=== PATIENT | female | born 1955 | race Caucasian/White ===

== ENCOUNTER 2017-04-07 20:04 | Observation (INO) | payer MEDICARE ==
[~2017-04-07] VITALS: Ht 162.6 cm; Wt 74.3 kg
[2017-04-07 20:55] LABS: ASPARTATE AMINO TRANSFERASE 23 U/L (15-37); BLOOD UREA NITROGEN 9 mg/dL (7-18)
[2017-04-07 21:00] LABS: IS PT STATUS REG ER OR PRE ER? YES
[2017-04-07] MEDS ORDERED: HYDR-3144 PO (21:10)
[2017-04-07] MEDS ORDERED: LISI-170 PO (21:10)
[2017-04-07] MEDS ORDERED: IRON (21:10)
[2017-04-07] MEDS ORDERED: VIT D (21:10)
[2017-04-07] MEDS ORDERED: ASPIRIN 81 MG TABLET CHEW PO ONE (22:00)
[2017-04-07] MEDS ORDERED: HYDROcodone/APAP 10/325 MG TABLET PO PRN (22:00)
[2017-04-07] MEDS ORDERED: HYDROcodone/APAP 10/325 MG TABLET ONE (22:32)
[2017-04-07] MEDS ORDERED: ASPIRIN 81 MG TABLET CHEW ONE (22:32)
[2017-04-08] MEDS ORDERED: HYDROcodone/APAP 10/325 MG TABLET PO PRN ×2 (01:00→08:00)
[2017-04-08] MEDS ORDERED: ENOXAPARIN 40 MG/0.4 ML SQ SCH (01:00)
[2017-04-08 01:06] VITALS: BP 146/75
[2017-04-08 03:26] LABS: IS PT STATUS REG ER OR PRE ER? NO
[2017-04-08 03:35] VITALS: BP 117/72
[2017-04-08] MEDS ORDERED: MORPHINE SULFATE 4 MG/ML, 1ML ONE ×2 (04:47→11:57)
[2017-04-08] MEDS ORDERED: MORPHINE SULFATE 4 MG/ML, 1ML IVPush ONE (05:00)
[2017-04-08 07:29] VITALS: BP 121/80
[2017-04-08] MEDS ORDERED: HYDROcodone/APAP 10/325 MG TABLET ONE (08:02)
[2017-04-08 08:07] LABS: IS PT STATUS REG ER OR PRE ER? NO
[2017-04-08] MEDS: HYDROcodone/APAP 10/325 MG TABLET PO PRN ×3 (08:09→15:54)
[2017-04-08] MEDS ORDERED: LISINOPRIL 20 MG TABLET PO SCH (09:00)
[2017-04-08] MEDS ORDERED: MORPHINE SULFATE 4 MG/ML, 1ML IVPush PRN (12:00)
[2017-04-08] MEDS ORDERED: REGADENOSON 0.4 MG/5 ML SYRINGE ONE (12:33)
[2017-04-08 15:09] VITALS: BP 122/69
== END 2017-04-08 17:52 | disposition home or self-care (01) ==
LOC: ED 22:30 → EDIP 23:30 → INTOOBSV 23:30 → 5SO 04-08 00:17 → UNDODISIN 04-08 17:52
PROVIDERS: ADMIT Internal Medicine; ATTEND Internal Medicine
DX: R07.89 Other chest pain (principal); G89.29 Other chronic pain; M94.0 Chondrocostal junction syndrome [Tietze]; M25.512 Pain in left shoulder; I10 Essential (primary) hypertension; M62.838 Other muscle spasm; N64.4 Mastodynia; L40.9 Psoriasis, unspecified; M06.9 Rheumatoid arthritis, unspecified; R45.1 Restlessness and agitation; M17.0 Bilateral primary osteoarthritis of knee; Z82.61 Family history of arthritis; Z88.0 Allergy status to penicillin; Z79.899 Other long term (current) drug therapy
CPT/HCPCS: 36415; 71020; 78452; 80053; 80061; 84443; 84484; 85025; 93005; 93017; 93306; 96372; 96374; 96375; 99285; A9502; C9898; G0378; J1650; J2785

== ENCOUNTER 2017-04-12 22:21 | Emergency (ER) | payer MEDICARE ==
[~2017-04-12] VITALS: Ht 162.6 cm; Wt 79.1 kg
[~2017-04-12 22:21] MED LIST: HYDR-3144 PO; IRON; LISI-170 PO; VIT D
[2017-04-12 22:24] VITALS: BP 136/83
[2017-04-13] MEDS ORDERED: HYDROmorphone 1 MG/ML, 1ML IM PRN (00:30)
[2017-04-13] MEDS ORDERED: KETOROLAC 30 MG/1 ML IM ONE (00:30)
[2017-04-13] MEDS ORDERED: HYDROmorphone 1 MG/ML, 1ML ONE (00:37)
[2017-04-13] MEDS ORDERED: KETOROLAC 30 MG/1 ML ONE (00:38)
== END 2017-04-13 01:33 | disposition home or self-care (01) ==
LOC: ED 23:59
DX: R07.89 Other chest pain (principal); I10 Essential (primary) hypertension
CPT/HCPCS: 93005; 96372; 99284; J1170; J1885

== ENCOUNTER 2017-06-10 18:33 | Emergency (ER) | payer MEDICARE ==
[~2017-06-10] VITALS: Ht 162.6 cm; Wt 82.7 kg
[2017-06-10] MEDS ORDERED: HYDROcodone/APAP 10/325 MG TABLET ONE (19:26)
[2017-06-10] MEDS ORDERED: KETOROLAC 30 MG/1 ML ONE (19:26)
[2017-06-10] MEDS ORDERED: HYDROcodone/APAP 10/325 MG TABLET PO PRN (19:30)
[2017-06-10] MEDS ORDERED: KETOROLAC 30 MG/1 ML IM ONE (19:30)
[2017-06-10 20:00] VITALS: BP 149/89
[2017-06-14] MEDS ORDERED: IBUP-1222 PO (20:59)
[2017-06-14] MEDS ORDERED: IBUP800T PO (20:59)
== END 2017-06-10 20:33 | disposition home or self-care (01) ==
LOC: ED 19:16
DX: S83.91XA Sprain of unspecified site of right knee, initial encounter (principal); S39.012A Strain of muscle, fascia and tendon of lower back, initial encounter; I10 Essential (primary) hypertension; G89.29 Other chronic pain; Z88.0 Allergy status to penicillin; W18.30XA Fall on same level, unspecified, initial encounter; Y93.89 Activity, other specified; Y99.8 Other external cause status; Y92.89 Other specified places as the place of occurrence of the external cause
CPT/HCPCS: 29505; 72110; 73564; 96372; 99284; J1885

== ENCOUNTER → 2017-10-05 | Outpatient (CLI) | payer MEDICARE ==
[~2017-10-05] MED LIST changes: +CHOL400T10 PO; -HYDR-3144 PO; +HYDR-3245 PO; +HYDR-3307 PO; +IBUP-1222 PO; +IBUP-1223 PO; +IRON PO; +MORPHINE PO; +OMEP-110 PO; +OXYC5TAB3 PO
[2017-10-05 11:08] LABS: PATH.CAST-FLAG NOT PRESENT; SPERM-FLAG NOT PRESENT; SRC-FLAG NOT PRESENT; XTAL-FLAG NOT PRESENT; YLC-FLAG NOT PRESENT
[2017-10-05 11:15] LABS: BLOOD UREA NITROGEN 12 mg/dL (7-18)
[2017-10-05 11:18] LABS: ASPARTATE AMINO TRANSFERASE 14 U/L (15-37)
== END | disposition home or self-care (01) ==
LOC: STAR 09:26
PROVIDERS: ATTEND Orthopaedic Surgery
DX: Z01.818 Encounter for other preprocedural examination (principal); M17.12 Unilateral primary osteoarthritis, left knee; M17.11 Unilateral primary osteoarthritis, right knee
CPT/HCPCS: 36415; 80053; 81001; 87081; 87086; 87147; 93005

== ENCOUNTER 2017-10-16 09:24 | Observation (INO) | payer MEDICARE ==
[~2017-10-16] VITALS: Ht 162.6 cm; Wt 91.3 kg
[~2017-10-16 09:24] MED LIST changes: -OXYC5TAB3 PO
[2017-10-16] MEDS ORDERED: VANCOMYCIN PER PHARMACY MC STA (12:34)
[2017-10-16] MEDS ORDERED: LACTATED RINGERS 1,000 ML IV SCH (12:44)
[2017-10-16 12:47] VITALS: BP 161/86
[2017-10-16] MEDS ORDERED: VANCOMYCIN 1,600 MG in SODIUM CHLORIDE 0.9% 250 ML IV ONE (13:00)
[2017-10-16] MEDS ORDERED: MIDAZOLAM 1 MG/ML, 2ML ONE ×2 (14:25→16:57)
[2017-10-16] MEDS ORDERED: DEXAMETHASONE 4 MG/ML, 1ML ONE ×2 (14:26)
[2017-10-16] MEDS ORDERED: ONDANSETRON 2MG/ML, 2ML ONE ×2 (14:26)
[2017-10-16] MEDS ORDERED: ROCURONIUM 10 MG/ML,10ML ONE (14:26)
[2017-10-16] MEDS ORDERED: PROPOFOL 10 MG/ML, 20ML ONE (14:26)
[2017-10-16] MEDS ORDERED: SUCCINYLCHOLINE 20 MG/ML, 10ML ONE (14:26)
[2017-10-16] MEDS ORDERED: FENTANYL PF 250 MCG/5ML ONE ×2 (14:26→15:20)
[2017-10-16] MEDS: SODIUM CHLORIDE 0.9% 1,000 ML IV SCH ×2 (14:35→20:00)
[2017-10-16] MEDS ORDERED: MEPERIDINE/PF 25MG/0.5ML IVPush PRN (15:00)
[2017-10-16] MEDS ORDERED: ONDANSETRON 2MG/ML, 2ML IV PRN (15:00)
[2017-10-16] MEDS ORDERED: hydrALAzine 20 MG/ML, 1ML IV PRN (15:00)
[2017-10-16] MEDS ORDERED: BISACODYL 10 MG SUPP PR PRN (15:00)
[2017-10-16] MEDS ORDERED: PROMETHAZINE 25 MG/ML, 1ML IV PRN (15:00)
[2017-10-16] MEDS ORDERED: ACETAMINOPHEN 325 MG TABLET PO PRN (15:00)
[2017-10-16] MEDS ORDERED: OXYcodone 5 MG/5 ML ORAL.SOL UDC PO PRN (15:00)
[2017-10-16] MEDS ORDERED: ACETAMINOPHEN 650 MG/20.3 ML UDC PO PRN (15:00)
[2017-10-16] MEDS ORDERED: ENOXAPARIN 40 MG/0.4 ML SQ SCH (15:00)
[2017-10-16] MEDS ORDERED: LABETALOL 5MG/ML, 20ML IV PRN (15:00)
[2017-10-16] MEDS ORDERED: ALBUTEROL SULFATE 2.5 MG/3 ML NPPB PRN (15:00)
[2017-10-16] MEDS ORDERED: MAGNESIUM HYDROXIDE 8%, 30ML UDC PO PRN (15:00)
[2017-10-16] MEDS ORDERED: SENNA/DOCUSATE TABLET PO PRN (15:00)
[2017-10-16] MEDS ORDERED: HYDROcodone/APAP 5/325 TABLET PO PRN (15:00)
[2017-10-16] MEDS ORDERED: ONDANSETRON 2MG/ML, 2ML IVPush PRN (15:00)
[2017-10-16] MEDS ORDERED: OXYcodone IR 5MG TABLET PO PRN (15:00)
[2017-10-16] MEDS ORDERED: ONDANSETRON 4 MG TABLET PO PRN (15:00)
[2017-10-16] MEDS ORDERED: TRANEXAMIC ACID 100 MG/ML, 10ML ONE (15:05)
[2017-10-16] MEDS ORDERED: EPHEDRINE 50 MG/ML, 1ML ONE (15:09)
[2017-10-16] MEDS ORDERED: BACITRACIN 50,000 UNIT ONE (15:18)
[2017-10-16] MEDS ORDERED: morphine SULFATE/PF 1 MG/ML, 10ML ONE (15:18)
[2017-10-16] MEDS ORDERED: KETOROLAC 60 MG/2 ML ONE (15:18)
[2017-10-16] MEDS ORDERED: ROPIvacaine/PF 0.5%, 20 ML ONE (15:18)
[2017-10-16] MEDS ORDERED: FENTANYL PF 100 MCG/2ML ONE ×2 (15:18→16:59)
[2017-10-16] MEDS: HYDROmorphone 1 MG/ML, 1ML IV PRN ×4 (16:45→17:15)
[2017-10-16] MEDS ORDERED: OXYcodone 5 MG/5 ML ORAL.SOL UDC ONE (16:46)
[2017-10-16] MEDS ORDERED: HYDROmorphone 2 MG/ML, 1ML ONE (16:46)
[2017-10-16] MEDS: MIDAZOLAM 1 MG/ML, 2ML IV PRN ×3 (16:50→18:46)
[2017-10-16] MEDS: FENTANYL PF 100 MCG/2ML IV PRN ×2 (17:20→17:32)
[2017-10-16] MEDS: morphine SULFATE 10 MG/ML, 1ML IV PRN ×5 (18:57→21:17)
[2017-10-16 19:58] VITALS: BP 133/86
[2017-10-16] MEDS: LORazepam 2 MG/ML, 1ML IVPush PRN (21:05)
[2017-10-16] MEDS: DOCUSATE 100 MG CAPSULE PO SCH (21:11)
[2017-10-16] MEDS: CEFAZOLIN PMX 2GM/50ML 50 ML IVPB SCH ×2 (21:23→23:52)
[2017-10-16] MEDS: LISINOPRIL 20 MG TABLET PO SCH (21:23)
[2017-10-16] MEDS: OXYcodone IR 5MG TABLET PO PRN (23:50)
[2017-10-17] MEDS: KETOROLAC 30 MG/1 ML IV SCH ×2 (00:03→09:21)
[2017-10-17 00:05] VITALS: BP 123/69
[2017-10-17 02:19] VITALS: BP 90/61
[2017-10-17] MEDS: OXYcodone IR 5MG TABLET PO PRN ×3 (04:53→13:47)
[2017-10-17] MEDS: SODIUM CHLORIDE 0.9% 1,000 ML IV SCH (05:30)
[2017-10-17 07:18] VITALS: BP 100/55
[2017-10-17] MEDS: LORazepam 2 MG/ML, 1ML IVPush PRN (07:23)
[2017-10-17] MEDS ORDERED: OMEPRAZOLE 20 MG CAPSULE.DR PO SCH (08:00)
[2017-10-17] MEDS ORDERED: ALUMINUM/MAG/SIMETHICONE 30 ML UDC PO PRN (08:00)
[2017-10-17] MEDS: LISINOPRIL 20 MG TABLET PO SCH (09:00)
[2017-10-17] MEDS: DOCUSATE 100 MG CAPSULE PO SCH (09:21)
[2017-10-17 13:00] VITALS: BP 115/63
[2017-10-17] MEDS ORDERED: FLU VACC QS2017-18 (36MOS+) UP/PF 0.5 ML IM-VACC ONE (13:00)
[2017-10-17] MEDS ORDERED: OXYC5TAB3 PO (13:29)
[2017-10-17] MEDS ORDERED: KETOROLAC 30 MG/1 ML IV SCH (15:00)
== END 2017-10-17 14:20 | disposition home or self-care (01) ==
LOC: INTOOBSV 12:15 → ORIP 12:15 → 4NOR 18:34 → DCLOUNGE 10-17 13:55
PROVIDERS: ADMIT Orthopaedic Surgery; ATTEND Orthopaedic Surgery
DX: M17.11 Unilateral primary osteoarthritis, right knee (principal); M21.061 Valgus deformity, not elsewhere classified, right knee; I10 Essential (primary) hypertension; E66.9 Obesity, unspecified; M81.0 Age-related osteoporosis without current pathological fracture
CPT/HCPCS: 27447; 73560; 90686; 96365; 96375; 96376; 97116; 97150; 97161; 97166; C1713; C1776; G0008; G0378; G8978; G8979; G8980; J0330; J0690; J1100; J1170; J1885; J2060; J2250; J2270; J2274; J2405; J2704; J2795; J3010; J3370; J7030; J7050; J7120; 96374

== ENCOUNTER → 2017-10-24 | Outpatient (CLI) | payer MEDICARE ==
[~2017-10-24] MED LIST changes: +OXYC5TAB3 PO
== END | disposition home or self-care (01) ==
LOC: RAD 16:56
PROVIDERS: ATTEND Orthopaedic Surgery
DX: M79.604 Pain in right leg (principal); R60.0 Localized edema
CPT/HCPCS: 93970

== ENCOUNTER 2019-02-24 12:38 | Emergency (ER) | payer MEDICARE ==
[~2019-02-24] VITALS: Ht 162.6 cm; Wt 82.3 kg
[2019-02-24 12:46] VITALS: BP 112/81
== END 2019-02-24 14:19 | disposition home or self-care (01) ==
LOC: ED 14:00
DX: J00 Acute nasopharyngitis [common cold] (principal); J01.10 Acute frontal sinusitis, unspecified; I10 Essential (primary) hypertension; G89.29 Other chronic pain
CPT/HCPCS: 71046; 87081; 87880; 99284

== ENCOUNTER → 2020-01-13 | Outpatient (CLI) | payer MEDICARE ==
[~2020-01-13] MED LIST changes: +ALPRazolam 1MG TAB ONE; -HYDR-3307 PO; +HYDR-36 PO
== END | disposition home or self-care (01) ==
LOC: RAD 09:34
PROVIDERS: ATTEND Chiropractor Independent Medical Examiner
DX: M51.36 Other intervertebral disc degeneration, lumbar region (principal); M47.816 Spondylosis without myelopathy or radiculopathy, lumbar region; M48.061 Spinal stenosis, lumbar region without neurogenic claudication
CPT/HCPCS: 72148

== ENCOUNTER 2020-03-11 12:40 | Emergency (ER) | payer MEDICARE ==
[~2020-03-11] VITALS: Ht 162.6 cm; Wt 84.7 kg
[~2020-03-11 12:40] MED LIST changes: -ALPRazolam 1MG TAB ONE
[2020-03-11] MEDS ORDERED: OXYC-306 PO (12:58)
[2020-03-11] MEDS ORDERED: LOSA25TA25 PO (12:58)
--- NOTE | 2020-03-11 13:00 | NUR ---
pt ambulated back to room. changed into gown, sitting on gurney, call light within reach, NAD, P/W/D, RESP intact, ABC intact, MAEx4. WCTM. waiting for initial MD posadas.
--- NOTE | 2020-03-11 13:15 | NUR ---
XANDER WONG MD AT FOR EVAL AND TO DISCUSS POC. PT P/W/D, RESP WNL, NAD, WCTM.
[2020-03-11] MEDS ORDERED: SODIUM CHLORIDE FLUSH 10ML SYR IVF ONE (13:30)
--- NOTE | 2020-03-11 13:52 | NUR ---
pt resting in gurney, NAD, P/W/D. talking in full sentences no SOB noted. VSS. WCTM. waiting on labs and urine results. Urine sample tubed to lab.
[2020-03-11 14:09] LABS: BASOPHILS # (AUTO) 0.06 x10^3/uL (0-0.1); BASOPHILS % (AUTO) 1 % (0-1); EOSINOPHILS # (AUTO) 0.24 x10^3/uL (0-0.4); EOSINOPHILS % (AUTO) 3 % (1-7); LYMPHOCYTES # (AUTO) 3.85 x10^3/uL (1-3.4); LYMPHOCYTES % (AUTO) 40 % (22-44); MD NO; MEAN CORPUSCULAR HEMOGLOBIN 32.9 pg (27.0-34.8); MEAN CORPUSCULAR HGB CONC 33.7 g/dL (32.4-35.8); MEAN CORPUSCULAR VOLUME 97.6 fL (80-100); MEAN PLATELET VOLUME 7.9 fL (7.4-10.4); MONOCYTES % (AUTO) 7 % (2-9); NEUTROPHILS % (AUTO) 49 % (42-75); PLATELET COUNT 323 x10^3/uL (130-400); RED BLOOD COUNT 4.15 x10^6/uL (3.82-5.3); RED CELL DISTRIBUTION WIDTH 12.8 % (9.6-15.2)
[2020-03-11 14:20] LABS: ALANINE AMINOTRANSFERASE 24 U/L (12-78); ALBUMIN 3.6 g/dL (3.4-5.0); ANION GAP 4 mmol/L (5-15); CALCIUM 9.6 mg/dL (8.5-10.1); CHLORIDE 104 mmol/L (98-107); CREATININE 0.79 mg/dL (0.55-1.02)
[2020-03-11 14:22] LABS: ALKALINE PHOSPHATASE 85 U/L (45-117); BILIRUBIN,TOTAL 0.5 mg/dL (0.2-1.0)
--- NOTE | 2020-03-11 14:40 | NUR ---
TASK RN: PT CONNECTED TO MONITORING, URINE COLLECTED AND SENT TO LAB. VS STABLE. AWAITING RESULTS.
[2020-03-11 14:55] LABS: MICROSCOPIC INDICATED
[2020-03-11 14:56] LABS: CULTURE INDICATED? YES
--- NOTE | 2020-03-11 15:09 | NUR ---
TASK RN: ALL TESTS RESULTED. PT IS UP FOR RECHECK AT THIS TIME.
--- NOTE | 2020-03-11 15:22 | NUR ---
TASK RN: PT TO CT.
[2020-03-11] MEDS ORDERED: OMNIPAQUE 350 MG/ML, 100ML BOTTLE ONE (15:38)
--- NOTE | 2020-03-11 15:50 | NUR ---
Late Entry: Pt back from CT, ambulated to bathroom with a steady gait. Pt now resting in gurney, P/W/D, NAD, RESP WNL, medicated per MAR for pain. pt denies additional needs at this time. WCTM.
[2020-03-11] MEDS ORDERED: KETOROLAC 30 MG/1 ML ONE (15:57)
[2020-03-11] MEDS ORDERED: OXYcodone/APAP 10/325MG TABLET ONE (15:58)
[2020-03-11] MEDS ORDERED: OXYcodone/APAP 10/325MG TABLET PO ONE (16:00)
[2020-03-11] MEDS ORDERED: KETOROLAC 30 MG/1 ML IVPush ONE (16:00)
[2020-03-11 16:32] VITALS: BP 162/96
--- NOTE | 2020-03-11 16:33 | NUR ---
Patient given discharge instructions and they have confirmed that they understand the instructions. Patient ambulatory and steady, pt denies additional needs or questions at this time. NAD, P/W/D, RESP WNL, ABC intact.
== END 2020-03-11 16:34 | disposition home or self-care (01) ==
LOC: ED 13:00
DX: R10.32 Left lower quadrant pain (principal); K59.00 Constipation, unspecified; I10 Essential (primary) hypertension
CPT/HCPCS: 36415; 74177; 80053; 81001; 83690; 85025; 87086; 96374; 99285; J1885; Q9967

== ENCOUNTER 2021-07-26 18:37 | Emergency (ER) | payer MEDICARE, OTHER ==
[~2021-07-26] VITALS: Ht 162.6 cm; Wt 84.8 kg
[~2021-07-26 18:37] MED LIST changes: -HYDR-3245 PO; +HYDR-3248 PO; -HYDR-36 PO; +HYDR1TAB53 PO; +LOSA25TA25 PO; +OXYC1TAB16 PO; -OXYC5TAB3 PO; +OXYC5TAB98 PO
[2021-07-26 18:58] VITALS: BP 192/102
--- NOTE | 2021-07-26 19:04 | NUR ---
EKG done in triage
[2021-07-26 19:27] LABS: BASOPHILS % (AUTO) 1 % (0-1); EOSINOPHILS % (AUTO) 3 % (1-7); LYMPHOCYTES % (AUTO) 25 % (22-44); MEAN CORPUSCULAR HEMOGLOBIN 33.3 pg (27.0-34.8); MEAN CORPUSCULAR HGB CONC 34.2 g/dL (32.4-35.8); MONOCYTES % (AUTO) 5 % (2-9); NEUTROPHILS % (AUTO) 65 % (42-75); PLATELET COUNT 256 x10^3/uL (130-400); RED BLOOD COUNT 3.83 x10^6/uL (3.82-5.3); RED CELL DISTRIBUTION WIDTH 12.4 % (9.6-15.2)
[2021-07-26 19:34] LABS: ALBUMIN 3.7 g/dL (3.4-5.0); ANION GAP 7 mmol/L (5-15); CALCIUM 8.8 mg/dL (8.5-10.1); CHLORIDE 106 mmol/L (98-107)
[2021-07-26 19:39] LABS: ALANINE AMINOTRANSFERASE 17 U/L (12-78); ALKALINE PHOSPHATASE 96 U/L (45-117); BILIRUBIN,TOTAL 0.3 mg/dL (0.2-1.0); CREATININE 0.63 mg/dL (0.55-1.02); TOTAL PROTEIN 7.7 g/dL (6.4-8.2); TROPONIN I < 0.015 ng/mL (0.000-0.045)
--- NOTE | 2021-07-26 21:26 | NUR ---
Pt approached debbie VIEIRA and stated that she was leaving because she does not have a ride home and that her has to be at work tomorrow. Pt educated on risks of leaving. Pt verbalized understanding and stated that she just cant wait anymore and stated she would possibly returned tomorrow. I re-educated pt and asked her to please stay. Pt denied. Elected to leave.
== END 2021-07-26 21:29 | disposition left against medical advice (07) ==
LOC: ED 21:23
DX: F11.23 Opioid dependence with withdrawal (principal); R94.31 Abnormal electrocardiogram [ECG] [EKG]
CPT/HCPCS: 36415; 71045; 80053; 84484; 85025; 93005; 99285